=== PATIENT | male | born 1970 | race African-American/Black ===

== ENCOUNTER 2023-10-10 17:53 | Emergency (ER) | payer OTHER, SELFPAY ==
--- NOTE | ~2023-10-10 | XR_ITS ---
XR chest 2V Ordering provider: Jacob Villegas MD History: 53 years Male with . cough, FEVER, CHILLS, BODYACHES X 1 DAY . Comparison: None. FINDINGS: MEDIASTINUM: The cardiac silhouette is not enlarged. LUNGS: No infiltrates, effusions or pneumothorax. Small opacity in the right parietal area which appear spiculated may represent a nodule or summation shadow. Follow-up in 6 months advised. OTHER: No free air under the diaphragm. IMPRESSION: No acute cardiopulmonary pathology. Possible nodule in the right parahilar area. Reviewed, dictated and finalized at location A.
[2023-10-10 17:55] VITALS: BP 132/72; PULSE 84; RESP 16; TEMP 36.7; O2SAT 99
[2023-10-10 18:55] LABS: Basophils Percent Auto 0.5 % (0.2-1.2); Eosinophils Percent Auto 0.5 % (0-4.4); Immature Granulocyte Absolute 0.03 K/mm3 (0.00-0.031); Immature Granulocyte Percent A 0.4 % (0-0.5); Lymphocytes Percent Auto 9.4 % (18.3-44.2); Mean Corpuscular HGB Conc 34.1 g/dl (32-36); Mean Corpuscular Hemoglobin 31.5 pg (26-34); Mean Corpuscular Volume 92.1 fl (80-100); Mean Platelet Volume 8.9 fl (7.4-10.4); Monocytes Absolute Auto 1.2 K/mm3 (0.1-0.6); Monocytes Percent Auto 16.4 % (2.6-8.5); Neutrophils Absolute Auto 5.4 K/mm3 (1.3-6.7); Neutrophils Percent Auto 72.8 % (45.5-73.1); Platelet Count Result 192 k/mm3 (150-375); Red Blood Count 4.45 M/mm3 (4.6-6.20); Red Cell Distribution Width 12.2 % (11.5-14.5); White Blood Count 7.4 K/mm3 (4.5-10.0)
[2023-10-10 18:57] VITALS: RESP 15
[2023-10-10 19:02] LABS: Appearance Urine Clear (Clear); Bilirubin Urine Negative (Negative); Blood Urine Negative (Negative); Color Urine Yellow (Yellow); Glucose Urine UA Negative (Negative); Ketones Urine Negative (Negative); Leukocyte Esterase Ur Negative LEU/UL (Negative); Nitrate Urine Negative (Negative); Protein Urine Negative (Negative); Specific Grav Ur 1.017 (1.001-1.035); pH Urine 8.5 (5.0-9.0)
[2023-10-10 19:05] LABS: Add Urine Microscopic? NO
[2023-10-10 19:08] LABS: Alanine Aminotransferase 26 U/L (6-50); Albumin Level 4.5 g/dL (3.5-5.1); Alkaline Phosphatase 59 U/L (38-126); Anion Gap 7 mmol/L (4-12); Aspartate Amino Transferase 37 U/L (17-59); Bilirubin,Total 1.5 mg/dL (0.2-1.3); Blood Urea Nitrogen 13 mg/dL (9-20); Calcium 9.2 mg/dL (8.4-10.2); Carbon Dioxide 26 mmol/L (22-30); Chloride 106 mmol/L (98-107); Estimated CRCL calculation 74 ml/min; Estimated Glomerular Filt Rate 58; Glucose 105 mg/dL (65-110); Lipase 28 U/L (23-300); Magnesium 1.5 mg/dL (1.6-2.3); Potassium 3.8 mmol/L (3.4-5.0); Sodium 139 mmol/L (137-145)
[2023-10-10] MEDS: MAGNESIUM SULF 2 GM/WATER 50ML 2 GM/50 ML BAG IVPB (19:31)
[2023-10-10] MEDS: ACETAMINOPHEN 500 MG TABLET 1000 MG PO (19:32)
[2023-10-10] MEDS: KETOROLAC 15 MG/ML VIAL (*BKC) IV PUSH (19:32)
[2023-10-10] MEDS: SODIUM CHLORIDE 0.9% IV 1,000 ML 999 ML IV CONT (19:33)
[2023-10-10] MEDS: ONDANSETRON INJ 4 MG/2 ML VIAL IV PUSH (19:33)
[2023-10-10 19:43] LABS: Influenza A QL RT-PCR Negative (Negative); Influenza B QL RT-PCR Negative (Negative); RSV RNA, RT-PCR Negative (Negative); SARS-CoV-2 RNA PCR Positive (Negative)
--- NOTE | 2023-10-10 19:52 | ED.GENADULT ---
HPI - General Adult General Chief complaint: Fever Stated complaint: fever sore throat headache Time Seen by Provider: 10/10/23 19:04 History of Present Illness HPI narrative: Patient 53-year-old gentleman presents emergency department with chief complaint of body aches and fever the patient reports that since yesterday he has been having body aches fever some nausea aches in his legs the patient reports he recently traveled to dialysis and reports that he has had a dry nonproductive cough. Related Data Allergies Allergy/AdvReac Type Severity Reaction Status Date / Time No Known Allergies Allergy Verified 10/10/23 17:57 Review of Systems Review of Systems: A 10 system review of systems was completed on the patient and is negative except for what is stated in the HPI. Nursing and ancillary documentation was reviewed. Exam Narrative: GENERAL: Well-appearing, well-nourished, and in no acute distress. HEAD: Normocephalic, atraumatic. EYES: PERRLA and EOMI. ENT: Nares clear, no rhinorrhea or epistaxis. Mucous membranes moist. NECK: Supple. CHEST: Clear to auscultation. No respiratory distress. HEART: Regular rate and rhythm. No murmur heard. Normal peripheral pulses. ABDOMEN: Soft, nontender, nondistended, normal active bowel sounds. EXTREMITIES: Normal range of motion. No edema. SKIN: Warm, dry, no rash. NEURO: No focal deficits. Alert and oriented x3. PSYCH: Normal mood and affect. Course Vital Signs Vital signs: Vital Signs Temperature 36.7 C 10/10/23 17:55 Pulse Rate 84 10/10/23 17:55 Respiratory Rate 16 10/10/23 17:55 Blood Pressure 132/72 10/10/23 17:55 Pulse Oximetry 99 10/10/23 17:55 Temperature 36.7 C 10/10/23 17:55 Pulse Rate 84 10/10/23 17:55 Respiratory Rate 15 10/10/23 18:57 Blood Pressure 132/72 10/10/23 17:55 Pulse Oximetry 99 10/10/23 17:55 Medical Decision Making [facility] Narrative Medical decision making narrative: Differential diagnosis includes pneumonia, viral syndrome, COVID-19, flu, RSV, electrolyte abnormality, dehydration Laboratory studies were obtained on the patient which showed as normal CBC CMP showed a bilirubin of 1.5 magnesium was 1.5 lipase was normal urinalysis was within normal limits COVID flu and RSV were positive for COVID Patient received IV fluids received 2 g of IV magnesium the patient will be discharged home with a prescription for Tessalon Perles Zofran and magnesium. The patient was offered PACs Lopid but opted to not take antivirals Vital Signs Vital Signs: Vital Signs Temperature 36.7 C 10/10/23 17:55 Pulse Rate 84 10/10/23 17:55 Respiratory Rate 16 10/10/23 17:55 Blood Pressure 132/72 10/10/23 17:55 Pulse Oximetry 99 10/10/23 17:55 Temperature 36.7 C 10/10/23 17:55 Pulse Rate 84 10/10/23 17:55 Respiratory Rate 15 10/10/23 18:57 Blood Pressure 132/72 10/10/23 17:55 Pulse Oximetry 99 10/10/23 17:55 Lab Data 10/10/23 18:46 10/10/23 18:46 Labs: Lab Results 10/10/23 10/10/23 Range/Units 18:46 18:55 WBC 7.4 (4.5-10.0) K/mm3 RBC 4.45 L (4.6-6.20) M/mm3 Hgb 14.0 (14.0-18.0) g/dL Hct 41.0 L (42.0-52.0) % MCV 92.1 (80-100) fl MCH 31.5 (26-34) pg MCHC 34.1 (32-36) g/dl RDW 12.2 (11.5-14.5) % Plt Count 192 (150-375) k/mm3 MPV 8.9 (7.4-10.4) fl Immature Gran % (Auto) 0.4 (0-0.5) % Neut % (Auto) 72.8 (45.5-73.1) % Lymph % (Auto) 9.4 L (18.3-44.2) % [place] % (Auto) 16.4 H (2.6-8.5) % Eos % (Auto) 0.5 (0-4.4) % Baso % (Auto) 0.5 (0.2-1.2) % Lymph # (Auto) 0.70 L (0.9-3.2) K/mm3 [place] # (Auto) 1.2 H (0.1-0.6) K/mm3 Eos # (Auto) 0.0 (0-0.3) K/mm3 Baso # (Auto) 0.0 (0.0-0.1) K/mm3 Abs Immat Gran (auto) 0.03 (0.00-0.031) K/mm3 Absolute Neuts (auto) 5.4 (1.3-6.7) K/mm3 Absolute Nucleated RBC 0.000 (0.0-0.012) K/mm3 Nucleated RBC % 0.0 (0.0-0.2) %
--- NOTE | 2023-10-22 20:02 | PC.NURSE ---
Late Entry Note: Pt magnesium was infused at 2025 on 10/10/23 and normal saline was infused at 2033 on 10/10/23.
== END 2023-10-10 20:26 | disposition home or self-care (01) ==
PROVIDERS: Emergency Medicine; Emergency Provider Emergency Medicine
DX: U07.1 COVID-19 (principal); E83.42 Hypomagnesemia; R11.0 Nausea; R91.1 Solitary pulmonary nodule
CPT/HCPCS: 36415; 71046; 80053; 81003; 83605; 83690; 83735; 85025; 87637; 96365; 96375; 99284; A9270; J1885; J2405; J3475; J7030